=== PATIENT | male | born 1985 | race African-American/Black ===

== ENCOUNTER 2019-11-16 21:04 | Emergency (ER) | payer SELFPAY ==
[2019-11-16 21:45] LABS: ABSOLUTE EOSINOPHILS # (AUTO) 0.2 10^3/uL (0.0-0.6); ABSOLUTE MONOCYTES (AUTO) 0.8 10^3/uL (0.1-1.4); ABSOLUTE NEUT (AUTO) 14.3 10^3/uL (1.7-8.2); BASOPHILS % (AUTO) 0.2 % (0-2); EOSINOPHILS % (AUTO) 1.1 % (0-6); HEMATOCRIT 49.8 % (37.9-51.0); LYMPHOCYTES % (AUTO) 11.7 % (13-45); MEAN CORPUSCULAR HEMOGLOBIN 32.5 pg (27.0-33.4); MEAN CORPUSCULAR HGB CONC 34.2 g/dL (32.0-36.0); MEAN CORPUSCULAR VOLUME 95 fl (80-97); MONOCYTES % (AUTO) 4.7 % (3-13); PLATELET COUNT 227 10^3/uL (150-450); RED BLOOD COUNT 5.24 10^6/uL (4.35-5.55); SEGMENTED NEUTROPHILS % (AUTO) 82.3 % (42-78); TOTAL CELLS COUNTED % (AUTO) 100 %; WHITE BLOOD COUNT 17.4 10^3/uL (4.0-10.5)
[2019-11-16 21:54] LABS: ALBUMIN 3.9 g/dL (3.5-5.0); ALKALINE PHOSPHATASE 68 U/L (38-126); ANION GAP 9 (5-19); ASPARTATE AMINO TRANSFERASE 28 U/L (17-59); BILIRUBIN,TOTAL 0.7 mg/dL (0.2-1.3); BLOOD UREA NITROGEN 16 mg/dL (7-20); CALCIUM 9.1 mg/dL (8.4-10.2); CARBON DIOXIDE 24 mmol/L (22-30); CHLORIDE 106 mmol/L (98-107); GLUCOSE 117 mg/dL (75-110); POTASSIUM 3.8 mmol/L (3.6-5.0); TOTAL PROTEIN 6.8 g/dL (6.3-8.2)
[2019-11-16 22:12] LABS: ALCOHOL < 10 mg/dL (NONE DETECTED)
--- NOTE | 2019-11-16 22:27 | ER Document Report ---
ED General - General Chief Complaint: Probable Seizure Stated Complaint: NAUSEA,VOMITING,DIAHR Time Seen by Provider: 11/16/19 22:01 Primary Care Provider: [facility] [Provider Group] - Follow up as needed Notes: 34-year-old man presents to the emergency department history of a seizure episode today. Apparently, he was using K2 spice, was at home observed tonic- clonic shaking episode. Patient denies injury, was incontinent of urine, he is presently feeling well and denies headache or neurologic symptoms. - Related Data Allergies/Adverse Reactions: No Known Allergies Allergy (Unverified 11/16/19 21:28) Past Medical History - Social History Smoking Status: Current Every Day Smoker Frequency of alcohol use: Rare Drug Abuse: Other Family History: Reviewed & Not Pertinent Patient has suicidal ideation: No Patient has homicidal ideation: No Past Surgical History: Reports: Hx Cholecystectomy Review of Systems - Review of Systems Notes: Constitutional: Negative for fever. HENT: Negative for sore throat. Eyes: Negative for visual changes. Cardiovascular: Negative for chest pain. Respiratory: Negative for shortness of breath. Gastrointestinal: Negative for abdominal pain, vomiting or diarrhea. Genitourinary: Negative for dysuria. Musculoskeletal: Negative for back pain. Skin: Negative for rash. Neurological: + Seizure 10 point ROS negative except as marked above and in HPI. Physical Exam - Vital signs Vitals: Temp Pulse Resp BP Pulse Ox 98.1 F 95 16 112/69 96 11/16/19 21:19 11/16/19 21:19 11/16/19 21:19 11/16/19 21:19 11/16/19 21:19 - Notes Notes: PHYSICAL EXAMINATION: Physical Exam: General: Well-nourished well-developed 34-year-old man in no acute distress HEENT: NC/AT, pupils equal round and reactive to light, MM moist,nares clear, oropharynx clear, airway patent Neck: supple, no adenopathy, no masses. Good range of motion Lungs: clear, no wheezing, no rales no rhonchi CVS: Regular rate and rhythm no murmur gallop or rub Abdomen: Soft, active, nontender, no masses, no hepatosplenomegaly Ext: No edema, clubbing or cyanosis. Neuro: Alert and responsive, moving all 4 extremities on command, cranial nerves intact, no focal findings Skin: Intact no open lesions, no rash PSYCH: Normal mood, normal affect. Course - Vital Signs Vital signs: Temp Pulse Resp BP Pulse Ox 98.1 F 107 H 20 143/92 H 97 11/17/19 01:24 11/17/19 01:24 11/17/19 01:24 11/17/19 01:24 11/17/19 01:24 - Laboratory Result Diagrams: 11/16/19 21:19 11/16/19 21:19 Laboratory results interpreted by me: 11/16/19 11/16/19 11/16/19 21:19 21:19 23:25 WBC 17.4 H Lymph % (Auto) 11.7 L Absolute Neuts (auto) 14.3 H Seg Neutrophils % 82.3 H Creatinine 1.31 H Glucose 117 H Urine Protein 100 H Urine Ketones TRACE H Urine Bilirubin SMALL H Urine Urobilinogen 4.0 H 11/17/19 00:55 I have reviewed laboratory data and used this information for the treatment decisions regarding the patient. - Diagnostic Test Radiology reviewed: Image reviewed, Reports reviewed - CT head: No acute in tracranial findings. Discharge - Discharge Clinical Impression: Seizure, Synthetic cannabis-induced anxiety disorder Condition: Good Disposition: HOME, SELF-CARE Additional Instructions: You were seen tonight in the emergency department with history of a seizure which occurred after use of synthetic cannabis. When a person experiences a seizure not related to seizure disorder, they are not greater risks of experiencing recurrence of the drug-induced seizure. This condition can cause physical and mental changes/damage to the brain as well as sudden . I encourage you to seek help to discontinue the use of synthetic marijuana products. If you have further difficulties or recurrent seizure you may return to the emergency department for further evaluation and treatment. Referrals: [facility] [Provider Group] - Follow up as needed
--- NOTE | 2019-11-16 23:51 | RADIOLOGY REPORT (SQ) ---
EXAM DESCRIPTION: CT HEAD WITHOUT IV CONTRAST COMPLETED DATE/TME: 11/16/2019 1108. CLINICAL HISTORY: Seizure. [employer] was smoking K2 "spice". COMPARISON: None Available. TECHNIQUE: Contiguous axial images of the brain were obtained without the administration of intravenous contrast. This exam was performed according to our departmental dose-optimization program, which includes automated exposure control, adjustment of the mA and/or kV according to patient size and/or use of iterative reconstruction technique. FINDINGS: There is no acute intracranial hemorrhage or mass effect. Ventricular system is within normal limits. There is adequate coronado-white matter differentiation. There is no skull fracture. The visualized paranasal sinuses and mastoid air cells are within normal limits. IMPRESSION: No acute intracranial abnormalities.
[2019-11-17 00:01] LABS: APPEARANCE,URINE SLIGHTLY-CLOUDY; BILIRUBIN,URINE SMALL (NEGATIVE); COLOR,URINE AMBER; GLUCOSE, URINE NEGATIVE (NEGATIVE); KETONES,URINE TRACE mg/dL (NEGATIVE); LEUKOCYTE ESTERASE,URINE NEGATIVE (NEGATIVE); NITRITE,URINE NEGATIVE (NEGATIVE); PROTEIN,URINE 100 mg/dL (NEGATIVE)
[2019-11-17 00:12] LABS: URINE AMPHETAMINES SCREEN NEGATIVE; URINE BARBITURATES SCREEN NEGATIVE; URINE BENZODIAZEPINES SCREEN NEGATIVE; URINE COCAINE SCREEN NEGATIVE; URINE MARIJUANA (THC) SCREEN NEGATIVE; URINE METHADONE SCREEN NEGATIVE; URINE PHENCYCLIDINE SCREEN NEGATIVE
[2019-11-17 01:34] VITALS: BP 143/92
== END 2019-11-17 01:25 | disposition home or self-care (01) ==
LOC: ER 21:04
DX: R56.9 Unspecified convulsions (principal); F41.9 Anxiety disorder, unspecified; F12.10 Cannabis abuse, uncomplicated; R11.2 Nausea with vomiting, unspecified; R19.7 Diarrhea, unspecified; F17.200 Nicotine dependence, unspecified, uncomplicated
CPT/HCPCS: 36415; 70450; 80053; 80307; 81001; 83735; 85025; 99284